=== PATIENT | female | born 1990 | race Caucasian/White ===

== ENCOUNTER 2021-12-17 00:22 | Day surgery (SDC) | payer OTHER, SELFPAY ==
[2021-12-11 17:44] VITALS: BMI 31.9
--- NOTE | 2021-12-11 18:12 | PC.NURSE ---
Report to the Outpatient Waiting Room, entrance under the green pavilion located off [facility], at 0630 on 12-17-21. OR Time: 0830. - You and your visitor will be asked a series of questions to screen for COVID 19 for your protection. - Only one visitor is allowed at this time. - The patient visitor is requested to leave or wait in car when not with patient. - A mask is required within the hospital. Patients may have clear liquids (water, carbonated beverages, clear teas, apple juice) until 3 hours prior to surgery with a maximum of 20 ounces. 0530 - No food from midnight until time of surgery - Infants may have breast milk until 4 hours before surgery, infant formula 6 hours prior to surgery. - Children will be allowed to drink immediately following surgery. If applicable, please bring a bottle or sippy cup to assist with drinking. Juice, water, soda, and popsicles are readily available. For infants on formula, please bring formula the day of surgery. Pacifiers are allowed. Take the following medications with a SIP of water the morning of surgery: None Medications to discontinue per physician: Vitamins and supplements Date to take last dose: 12-14-21 Please no make-up, nail citizen of [place], hairspray, perfume, deodorant, or body powder the day of surgery. No jewelry (including any body piercings) or valuables the day of surgery, leave them at home. Please take a shower or bath the night before, or the morning of, surgery with an antibacterial soap. Wear comfortable, loose fitting clothing. Children are encouraged to wear pajamas. - Jewelry must be removed prior to entering the operating room. Rings and piercings that are not removed may be cut off. - The hospital will not accept responsibility for valuables. - Please leave all valuables, including medications, at home the day of surgery. If you are going home after surgery, a licensed clamp truck driver must drive you home. - NO public transportation without another adult. - We recommend that an adult stay with you for 24 hours following discharge. - We also recommend that you do not drive, make important decision, drink alcoholic beverages, or take any drugs that were not prescribed by your health care provider for at least 24 hours after your discharge time. For Pediatric surgeries, we recommend two adults accompany the child home (only one inside the building at this time). Follow any additional instructions given to you from your surgeon. If you or anyone in your household have experienced Covid symptoms in the past week, please notify your surgeon or the nurse liaison at the phone number below for possible testing. Telephone instructions given to Rupa Rivera and asked if any additional questions and then verbalized understanding. Patient advised to call surgeon office or pre surgery nurse liaison [phone] if any additional questions.
--- NOTE | 2021-12-16 13:49 | WPDANESEPPF ---
Anes - Initial Pre Proc Eval Procedure: Operation Date: 12/17/21 08:30 Proposed Procedures p Bilateral Breast Augmentation - Marcelo Siegel MD Date/Time: 12/16/21 13:49 Surgeon: Marcelo Siegel MD Pre Op Diagnosis: micromastia Patient Data Age: 31 Gender: F Height: 1.68 m Weight: 89.81 kg Allergies Allergy/AdvReac Type Severity Reaction Status Date / Time poison tristan extract Allergy Intermediate Rash Verified 12/11/21 17:42 Home Medications Medication Instructions Recorded Confirmed Type docusate sodium 100 mg capsule 100 mg PO DAILY #14 caps 12/03/21 12/11/21 Rx (Colace) ondansetron 4 mg disintegrating 4 mg PO Q8H #21 tabs 12/03/21 12/11/21 Rx tablet carisoprodol 350 mg tablet (Soma) 350 mg PO TID PRN muscle pain #21 12/04/21 12/11/21 Rx tabs oxycodone-acetaminophen 5 mg-325 1 tablet PO Q6H PRN pain #30 tabs 12/04/21 12/11/21 Rx mg tablet (Percocet) Patient hx anesthesia problems: none Family hx anesthesia problems: none Results Review: All pre-operative results and documents have been reviewed as part of the pre-operative evaluation. [facility] Past Medical History Medical History (Updated 12/16/21 @ 13:50 by Vince Candelaria MD) Obesity Surgical History Surgical History (Updated 10/30/21 @ 09:23 by Lakisha Euceda) History of Social History Social History (Updated 10/30/21 @ 09:23 by Lakisha Euceda) Smoking status: Never smoker Second hand tobacco smoke exposure: Yes (sometimes when with mother) Alcohol intake: current Alcohol use details: occasionally/socially Substance use: never Substance use type: does not use Living arrangements: with family Spiritual care concerns: No Anes - Eval Final PreProcedure Day of Procedure 12/16/21 13:49 Patient weight: obese Heart: regular rate and rhythm Lungs: clear to auscultation and normal air movement Airway: Mallampati scale class II Neurological: alert and oriented Last oral intake: >/= 8 hours ASA classification: II Emergent: no Anesthetic plan: proceed Anesthesia type and monitoring: general LMA Results Review: All pre-operative results and documents have been reviewed as part of the pre-operative evaluation. Informed Consent: The patient's anesthetic plan and its attendant risks and benefits were discussed with the patient/family/POA. Questions were solicited and answers provided to the satisfaction of the patient/family/POA.
[2021-12-17] VITALS (9 sets, daily range): BP systolic 116–160; BP diastolic 58–97; PULSE 59–87; RESP 10–20; TEMP 36.4–36.8; O2SAT 97–100
--- NOTE | 2021-12-17 07:07 | WPDHPUPDATE1 ---
History and Physical Update Update Date/Time: 12/17/21 07:07 History and Physical has been reviewed, including an updated exam of the patient. There are NO changes in the patient's condition. Risks, benefits, and alternatives have been discussed and questions answered. Patient agrees to proceed with procedure.
[2021-12-17] MEDS: LACTATED RINGERS 1,000 ML 30 ML IV CONT ×2 (07:10→10:20)
--- NOTE | 2021-12-17 07:10 | W.PM.PROC2 ---
Procedure Note - Detailed Date of Procedure 12/17/21 Pre-op Diagnosis micromastia Post-op Diagnosis Same Procedure Performed Bilateral augmentation mammaplasty Surgeon Marcelo Siegel MD Anesthesia General Findings Bilateral Elizabeth Crews SoftTouch 440 cc Right - REF# [id number] SN [id number] Left - REF# [id number] SN [id number] Description of Procedure She is here today for bilateral breast augmentation. Previously and again today the risks, benefits, alternatives were discussed in extensive detail. I wanted her to be very realistic about the risks involved as well as expectations. We discussed aftercare and what to monitor for. Made sure answered all of her questions to her satisfaction today and consent was obtained. Marked in the preoperative holding area with their verification. The patient was taken to the operating room placed supine on the operating table. Anesthesia was provided by anesthesiology. A surgical time-out was taken. We cleansed the skin and 1% lidocaine and 0.25% Marcaine with epinephrine was used anesthetize as a field block. She was prepped and draped in a standard sterile fashion. Tegaderm nipple Dumont were placed. A 15 blade used to make an incision along the inframammary fold. Dissection was continued at 45 degree angle until the chest wall as identified. 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 I incised the pectoralis major along its inferior border and completely released the inferior border leaving the medial border intact. I created a subpectoral pocket in the appropriate dimensions based on our preoperative planning for the implant. I then copiously irrigated with saline solution and verified a strict hemostasis. Next the use a triple antibiotic and Betadine containing solution to irrigate the pocket. I washed my gloves with the triple antibiotic and Betadine solution. We washed the implant immediately upon opening it with this solution and only opened it when we needed it. I used implant funnel and no-touch technique. The implant was introduced into the pocket using the funnel. Having verified positioning of the implant this was closed using 2-0 Vicryl followed by 3-0 Monocryl in a running subcuticular 4-0 Monocryl followed by tissue glue. Fluffs and surgical bra were placed. Patient was awoke and taken to PACU without difficulty. All instrument sponge counts were correct at the end of the case. Estimated Blood Loss 20 Drains No Packing No Pathology None sent Complications No immediate complications Condition Stable Disposition PACU
[2021-12-17] MEDS: NACL 0.9% IRRIG POUR BOTTLE 900 ML, GENTAMICIN SULFATE INJ 160 MG, ceFAZolin 2 GM, POVI... IRRIGATION (08:31)
[2021-12-17] MEDS: TRANEXAMIC ACID 1,000MG/ISO100 1,000 MG/100 ML BAG 200 MG IVPB (08:31)
[2021-12-17] MEDS: BUPIVACAINE HCL 0.25% PF 30 ML VIAL INFILTRATE (08:31)
[2021-12-17] MEDS: LIDO 1%/EPINEPHRINE/PF 1:200,000 30 ML VIAL XX (08:31)
[2021-12-17] MEDS: ceFAZolin 2 GM/D5W 50 ML 2 GM/50 ML BAG IVPB (08:31)
[2021-12-17] MEDS: fentaNYL CITRATE INJ (*CRX) 100 MCG/2 ML VIAL 25 MCG IV PUSH ×7 (10:02→10:42)
[2021-12-17] MEDS: oxyCODONE HCL (*CRX) 5 MG TAB IR PO (11:18)
[2021-12-17] MEDS: ONDANSETRON INJ 4 MG/2 ML VIAL IV PUSH (11:20)
== END 2021-12-17 12:09 | disposition home or self-care (01) ==
PROVIDERS: Visit Provider Surgery Plastic and Reconstructive Surgery
PROC: (CPT 19325; principal; 2021-12-17 08:30)
DX: Z41.1 Encounter for cosmetic surgery (principal); N64.82 Hypoplasia of breast; E66.9 Obesity, unspecified; Z68.32 Body mass index [BMI] 32.0-32.9, adult
CPT/HCPCS: 19325; A9270; J0690; J1100; J1170; J1580; J2250; J2405; J2704; J3010; J7120

== ENCOUNTER 2022-01-01 15:17 | Emergency (ER) | payer OTHER, SELFPAY ==
[2022-01-01 15:28] VITALS: BP 105/61; PULSE 65; RESP 18; TEMP 36.7; O2SAT 100
--- NOTE | 2022-01-01 16:08 | ED.EAR ---
HPI - Ear Problem General Chief complaint: Ear Stated complaint: Right Ear Pain Time Seen by Provider: 01/01/22 16:09 Source: patient and RN notes reviewed Mode of arrival: ambulatory Limitations: no limitations History of Present Illness HPI Narrative: 31 year old female presents with concern for right your pain. She reports symptoms started several days ago after she cleaned out her ears with a Q-tip. She denies nasal congestion, rhinorrhea, sore throat, decreased hearing, fever body aches chills or sweats. She denies drainage from the ear MD Complaint: ear pain Related Data Allergies Allergy/AdvReac Type Severity Reaction Status Date / Time poison tristan extract Allergy Intermediate Rash Verified 01/01/22 15:59 Review of Systems Review of Systems: CONSTITUTIONAL: Denies malaise, chills, sweats, or fever. EYES: Denies visual changes, redness, or discharge. ENT: Denies rhinorrhea, congestion, sinus pain, and sore throat. Reports ear pain CARDIOVASCULAR: Denies chest pain, palpitations, or edema. RESPIRATORY: Denies cough. Denies dyspnea. GASTROINTESTINAL: Denies abdominal pain, nausea, vomiting, diarrhea SKIN: Denies rash or itching. MUSCULOSKELETAL: Denies myalgia. NEUROLOGIC: Denies headache. All systems reviewed & are unremarkable except as noted in HPI and below PMFSH Past Medical History Medical History (Updated 01/01/22 @ 16:12 by Darcy Gerardo NP) Obesity Surgical History Surgical History (Updated 10/30/21 @ 09:23 by Lakisha Euceda) History of Social History Social History (Updated 10/30/21 @ 09:23 by Lakisha Euceda) Smoking status: Never smoker Second hand tobacco smoke exposure: Yes (sometimes when with mother) Alcohol intake: current Alcohol use details: occasionally/socially Substance use: never Substance use type: does not use Spiritual care concerns: No Comments At time of signature, agree with nursing past medical, surgical, social and family history. There is no relevant family history pertinent to the presenting complaint Exam Narrative: GENERAL: Well-appearing, well-nourished, and in no acute distress. HEAD: Normocephalic EYES: PERRLA, conjunctivae clear ENT: Nares clear.. Mucous membranes moist. TM pearly raza with dull light reflex bilaterally; right tragal tenderness with EAC erythema, edema, small amount of drainage. Oropharynx not erythematous without lesions. Tonsils not enlarged and without exudate, no drooling, no hoarseness, no trismus, uvula midline. NECK: Supple. No lymphadenopathy CHEST: No respiratory distress, speaks in full sentences. HEART: Regular rate and rhythm. No murmur heard. SKIN: Warm, dry, no rash. NEURO: Alert and oriented x3. PSYCH: Normal mood and affect Course Course Emergency Course: Patient is aware of diagnosis, understands and agrees to treatment plan. Anticipatory guidance given. Patient agrees to follow-up as directed and is aware of reasons to seek care at the emergency department. Portions of this record may have been created with voice recognition software Level of Care: Express Care Visit Vital Signs Vital signs: Vital Signs Temperature 98.1 F 01/01/22 15:28 Pulse Rate 65 01/01/22 15:28 Respiratory Rate 18 01/01/22 15:28 Blood Pressure 105/61 01/01/22 15:28 Pulse Oximetry 100 01/01/22 15:28 Oxygen Delivery Room Air 01/01/22 15:28 Temperature 98.1 F 01/01/22 15:28 Pulse Rate 65 01/01/22 15:28 Respiratory Rate 18 01/01/22 15:28 Blood Pressure 105/61 01/01/22 15:28 Pulse Oximetry 100 01/01/22 15:28 Oxygen Delivery Room Air 01/01/22 15:28 Reviewed. Medical Decision Making MDM Narrative Medical decision making narrative: Differential diagnosis considered: Manzanares virus, strep pharyngitis, allergic rhinitis, upper respiratory tract infection, sinusitis, rhinosinusitis, nasopharyngitis. viral pharyngitis, otitis media, otitis externa, otitis effusion, cerumen im
== END 2022-01-01 16:15 | disposition home or self-care (01) ==
PROVIDERS: Emergency Provider Nurse Practitioner
DX: H60.501 Unspecified acute noninfective otitis externa, right ear (principal); E66.9 Obesity, unspecified; Z68.32 Body mass index [BMI] 32.0-32.9, adult
CPT/HCPCS: 99213; G0463

== ENCOUNTER 2022-06-04 17:35 | Emergency (ER) | payer OTHER, SELFPAY ==
[2022-06-04 17:49] VITALS: BP 119/60; PULSE 56; RESP 18; TEMP 36.8; O2SAT 100
--- NOTE | 2022-06-04 20:10 | ED.GENADULT ---
HPI - General Adult General Chief complaint: Anxiety Stated complaint: Anxiety Time Seen by Provider: 06/04/22 20:10 Source: patient, RN notes reviewed and old records reviewed Mode of arrival: ambulatory Limitations: no limitations History of Present Illness HPI narrative: 32 year old female who presents to [facility] care with complaints of PANIC ATTACK YESTERDAY AT WORK, with HEART RACING,HEADACHE, NAUSEA WAS NOT ABLE GO TO WORK TODAY. Patient reports that today she still feels like her heart is racing at times and feels overwhelmed. Patient reports increased stress lately presently attending [employer]. Patient reports history of anxiety in the past. MD complaint: anxiety Onset (ago): day(s) (day 2 of symptoms) Related Data Allergies Allergy/AdvReac Type Severity Reaction Status Date / Time poison tristan extract Allergy Intermediate Rash Verified 06/04/22 20:03 Review of Systems Review of Systems: CONSTITUTIONAL: Denies fever, chills, or sweats. EYES: Denies visual changes, redness, or discharge. ENT: Denies rhinorrhea, congestion, sore throat, or otalgia. CARDIOVASCULAR: Denies chest pain, palpitations, or edema.feels intermittent heart racing RESPIRATORY: Denies cough or dyspnea. GASTROINTESTINAL: Denies abdominal pain,some nausea, no vomiting, or diarrhea. GENITOURINARY: Denies dysuria or hematuria. SKIN: Denies rash or itching. MUSCULOSKELETAL: Denies back pain, joint pain, or myalgia. NEUROLOGIC: reports some headache,no numbness, or weakness. PSYCHIATRIC: Reports some history of anxiety or depression. All systems reviewed & are unremarkable except as noted in HPI and below PMFSH Past Medical History Medical History Anxiety Obesity Surgical History Surgical History H/O breast augmentation History of Social History Social History Smoking status: Never smoker Second hand tobacco smoke exposure: Yes (sometimes when with mother) Alcohol intake: current Alcohol use details: occasionally/socially Substance use: never Substance use type: does not use Spiritual care concerns: No Comments At time of signature, agree with nursing past medical, surgical, social and family history. There is no relevant family history pertinent to the presenting complaint Exam Narrative: GENERAL: Well-appearing, well-nourished, and in no acute distress. HEAD: Normocephalic, atraumatic. EYES: PERRLA and EOMI. ENT: Nares clear, no rhinorrhea or epistaxis. Mucous membranes moist.TM's normal, throat pink with no lesions or exudates or swelling NECK: Supple. no lymphadenopathy CHEST: Clear to auscultation. No respiratory distress.SAO2 100% on room air HEART: Regular rate and rhythm. No murmur heard. Normal peripheral pulses. ABDOMEN: Soft, nontender, nondistended, normal active bowel sounds. EXTREMITIES: Normal range of motion. No edema. SKIN: Warm, dry, no rash. NEURO: No focal deficits. Alert and oriented x3.anxious Course Course Emergency Course: Patient is aware of diagnosis, understands and agrees to treatment plan.? Anticipatory guidance given.? Patient agrees to follow-up as directed and is aware of reasons to seek care at the emergency department. Portions of this record may have been created with voice recognition software Level of Care: Express Care Visit Vital Signs Vital signs: Vital Signs Temperature 36.8 C 06/04/22 17:49 Pulse Rate 56 L 06/04/22 17:49 Respiratory Rate 18 06/04/22 17:49 Blood Pressure 119/60 06/04/22 17:49 Pulse Oximetry 100 06/04/22 17:49 Oxygen Delivery Room Air 06/04/22 17:49 Temperature 36.8 C 06/04/22 17:49 Pulse Rate 56 L 06/04/22 17:49 Respiratory Rate 18 06/04/22 17:49 Blood Pressure 119/60 06/04/22 17:49 Pulse Oximetry 100 06/04/22 17:49 Oxygen Delivery Room Air
== END 2022-06-04 20:25 | disposition home or self-care (01) ==
PROVIDERS: Emergency Provider Registered Nurse
DX: F41.9 Anxiety disorder, unspecified (principal)
CPT/HCPCS: 99213; G0463

== ENCOUNTER 2024-07-11 09:49 | Emergency (ER) | payer SELFPAY ==
[2024-07-11 09:59] VITALS: BP 133/65; PULSE 84; RESP 18; TEMP 37.3; O2SAT 100
--- NOTE | 2024-07-11 10:21 | ED_ITS ---
HPI - URI/Sore Throat General Chief Complaint: Upper Respiratory Infection Stated Complaint: flu like symptoms Time Seen by Provider: 07/11/24 10:18 Source: RN notes reviewed and old records reviewed Mode of arrival: ambulatory Limitations: no limitations History of Present Illness HPI Narrative: 34-year-old female who presents to [facility] with complaints of fatigue,stuffy nose with congestion, headache and body aches with cough for the past 2 days and had to call off of work today so needs work note. Patient reports that she needs to be tested for flu and COVID. Patient reports that her daughter has also been ill for the past 2 days.Reports that she has taken some Ibuprofen for her symptoms, reports no known fever. MD elicited complaint: cough and other (fatigue body aches, headache, nasal congestion, cough) Onset (ago): day(s) (day2) Severity: moderate Able to tolerate fluids by mouth: Yes Treatments prior to arrival: ibuprofen Related Data Home Medications ?Medication ?Instructions ?Recorded ?Confirmed ?Last Taken ?Type fluoxetine 10 mg capsule mg 07/11/24 Unknown History Allergies Allergy/AdvReac Type Severity Reaction Status Date / Time poison tristan extract Allergy Intermediate Rash Verified 07/11/24 09:57 Review of Systems Review of Systems: CONSTITUTIONAL: Reports malaise, no chills, sweats, or fever. EYES: Denies visual changes, redness, or discharge. ENT: Reports rhinorrhea, congestion, sinus pain,no otalgia and no sore throat. CARDIOVASCULAR: Denies chest pain, palpitations, or edema. RESPIRATORY: Reports cough.? Denies dyspnea. GASTROINTESTINAL: Denies abdominal pain, nausea, vomiting, diarrhea SKIN: Denies rash or itching. MUSCULOSKELETAL: reports myalgia. NEUROLOGIC: Reports headache. All systems reviewed & are unremarkable except as noted in HPI and below PMFSH Past Medical History Medical History H/O migraine during Anxiety Obesity Surgical History Surgical History History of tubal ligation H/O breast augmentation History of Social History Social History Smoking status: Never smoker Second hand tobacco smoke exposure: Yes (sometimes when with mother) Alcohol intake: current Alcohol use details: occasionally/socially Substance use: never Substance use type: does not use Living arrangements: with family Spiritual care concerns: No Comments At time of signature, agree with nursing past medical, surgical, social and family history. There is no relevant family history pertinent to the presenting complaint Exam Narrative: GENERAL: Well-appearing, well-nourished,obesity and in no acute distress. HEAD: Normocephalic EYES: PERRLA, conjunctivae clear ENT: Nares clear, turbinates edematous and erythematous, clear discharge. Mucous membranes moist. TM pearly raza with dull light reflex bilaterally; no tragal tenderness. Oropharynx erythematous without lesions. Tonsils not enlarged and without exudate, no drooling, no hoarseness, no trismus, uvula midline.post nasal drainage present NECK: Supple. No lymphadenopathy CHEST: Clear to auscultation, breath sounds equal. No wheezing, rhonchi, rales, or stridor. No respiratory distress, speaks in full sentences.dry cough SAO2 100% on room air HEART: Regular rate and rhythm. No murmur heard. SKIN: Warm, dry, no rash. NEURO: Alert and oriented x3. PSYCH: Normal mood and affect Course Course Emergency Course: Patient is aware of diagnosis, understands and agrees to treatment plan.? Anticipatory guidance given.? Patient agrees to follow-up as directed and is aware of reasons to seek care at the emergency department. Portions of this record may have been created with voice recognition software Level of Care: Express Care Visit Vital Signs Vital signs: Vital Signs Temperature 37.3 C 07/11/24 09:59 Pulse Rate 84 07/11/24 09:59 Respiratory Rate 18 07/11/24 09:59 Blood Pressure 133/65 07/11/24 09:59 Pulse Oximetry 100 07/11/24 09:59 Oxygen Delivery Room Air 07/11/24 09:59 Temperature 37.3 C 07/11/24 09:59 Pulse Rate 84 07/11/24 09:59 Respiratory Rate 18 07/11/24 09:59 Blood Pressure 133/65 07/11/24 09:59 Pulse Oximetry 100 07/11/24 09:59 Oxygen Delivery Room Air 07/11/24 09:59 Reviewed MDM - URI/Sore Throat MDM Narrative Medical decision making narrative: Differential diagnosis considered: Manz[place] virus, strep pharyngitis, allergic rhinitis, upper respiratory tract infection, sinusitis, rhinosinusitis, nasopharyngitis. viral pharyngitis, otitis media, otitis externa, pneumonia, bronchitis, viral cough syndrome, viral syndrome, and influenza.? Exam findings show no acute concerns or changes; patient is non-toxic appearing and is in no distress.? Patient is appropriate for outpatient treatment and follow-up. Differential Diagnosis Differential diagnosis: Likely upper respiratory infection, viral infection, influenza and other (COVID) Medical Records Attestation: I reviewed the patient's medical records. Lab Data Attestation: I reviewed the patient's lab results. Lab results narrative: COVID antigen positive, Influenza A negative, Influenza B negative Labs: Lab Results 07/11/24 Range/Units 10:24 POC Influenza A Ag Negative (Negative) POC Influenza B Ag Negative (Negative) POC SARS CoV-2 Ag Positive (Negative) Critical Care Time Critical Care Time Critical Care Time: No Discharge Plan Discharge Clinical Impression: COVID-19 Patient Disposition: Home, Self-Care Condition: Stable Instructions: How to Recover from COVID-19 at Home (ED) Additional Instructions: Increase fluids especially juices and water [id number] cough and cold medicine of your choice for your symptoms Zyrtec Claritin or Abby daily Tylenol or ibuprofen for any fever pain heat to the face 20-30 minutes 4-6 times a day for pain Salt water gargles, throat lozenges or throat sprays as desired Delsym or Robitussin cough syrup Must quarantine If your symptoms persist, change or worsen significantly before you can contact your personal physician then please, without delay, go to the emergency department for further evaluation. Follow-up with PCP in 7-10 days or sooner if needed Follow up with PCP soon in regards to your blood pressure which is elevated above threshold for referral. Blood pressure above 120/80 may indicate pre- hypertension. 133/65 COVID-19 DISCHARGE The following recommendations have been made by the CDC and local Health Departments, regarding COVID-19: Those individuals with mild cases of COVID-19 can generally be discontinued from isolation, 5 days AFTER the onset of symptoms AND the resolution of fever for 24hrs (without the use of fever-reducing medications) Those individuals who were asymptomatic, and tested positive, are discontinued from isolation 10 days AFTER their first positive COVID-19 test Those individuals with SEVERE to CRITICAL illness or immunocompromised diseases may require up to 20 days of home isolation or hospitalization Majority of mild to moderate cases can be treated at home, without hospitalization or prescription medications You do not need a negative test result to return to work/school, assuming the above recommendations have been met and you are not symptomatic. At this time, return to work/school notes will not be provided. Guidelines from the local Health Department, CDC, and workplace are expected to be followed. All individuals in the household need to remained quarantined for up to 14 days if asymptomatic OR 10 days after the start of symptoms. Everyone in the home DOES NOT require testing, they are presumed positive and should quarantine as directed. Treating symptoms for mild to moderate cases may include: Tylenol, Flonase/nasal spray, OTC cold/flu medications recommended from your provider or any necessary prescription medications provided at your visit or from your PCP IF YOU TESTED NEGATIVE If you are symptomatic with reason to believe you have COVID-19, there is a high possibility your rapid test may not have detected the virus. Rapid testing is dependent on timing and viral load and may have a false- negative reading You should follow appropriate guidelines regarding quarantine, hand washing, mask wearing, and social distancing You may be sent for PCR testing as an outpatient to the [facility] testing site Common Adult Symptoms: Fever/chills Cough Shortness of breath Fatigue, muscle aches Headache Loss of taste/smell Sore throat, congestion, runny nose GI symptoms (nausea, vomiting, diarrhea) Common Pediatric Symptoms Cough Fever GI symptoms (diarrhea, upset stomach, nausea, vomiting) Symptoms may differ in severity however, most cases do not require hospitalization. WHEN TO SEEK ER EVALUATION/TREATMENT Severe/persistent shortness of breath or difficulty breathing Elevated, persistent fevers without resolution with fever-reducing medications Chest pain Extreme fatigue/lethargy Complications of pre-existing disease Patient Language: Kinyarwanda Prescriptions: No Action fluoxetine 10 mg capsule Follow-up/Referrals: Milad,Duke Maddox MD [Primary Care Provider] - Stand Alone Forms: Work/School Release IP Time of Disposition: 10:44 Quality Lupis Coma Scale Eyes: Open Verbal: Oriented and Alert Motor: Follows Commands [place] Coma Total Score: 15
[2024-07-11 10:26] LABS: EDCOVIDSCREEN Positive (Negative); EDINFLUASCREEN Negative (Negative); EDINFLUBSCREEN Negative (Negative)
== END 2024-07-11 10:48 | disposition home or self-care (01) ==
PROVIDERS: Emergency Provider Registered Nurse; PCP Internal Medicine Geriatric Medicine
DX: U07.1 COVID-19 (principal); Z20.822 Contact with and (suspected) exposure to COVID-19; E66.9 Obesity, unspecified; Z68.32 Body mass index [BMI] 32.0-32.9, adult
CPT/HCPCS: 87426; 87804; 99212; G0463

== ENCOUNTER 2024-12-16 10:27 | Emergency (ER) | payer SELFPAY ==
--- NOTE | 2024-12-16 10:30 | ED_ITS ---
HPI - Arrhythmia/Palpitations General Chief Complaint: Weakness Stated Complaint: fatigue,rapid heart rate Time Seen by Provider: 12/16/24 10:29 Source: patient Mode of arrival: ambulatory Limitations: no limitations History of Present Illness HPI narrative: Rupa is a 34-year-old female patient presenting to the clinic today with complaints of fatigue, headache, nasal congestion, and feels like she has an elevated heart rate. She reports headache and nasal congestion has been going on for the past 4 days. This morning she felt fatigue,increase in heart rate, and shaky. States she was at work when this occurred. Nurse at work took her blood pressure and told her her blood pressure was elevated. She also ate something and stated that this improved her symptoms. Denies any nausea or vomiting. No aura. Does say that there was some sensitivity to light with headache. History of migraine headaches during in the past. Took a Excedrin migraine at work at 0930 and ate something and this has improved her symptoms. Work sent her to the clinic so she could be evaluated. History of anxiety. LMP was 12/03/24. Has not been sexually active since her last menses. Related Data Home Medications ?Medication ?Instructions ?Recorded ?Confirmed ?Last Taken ?Type fluoxetine 40 mg capsule mg 12/16/24 Unknown History Allergies Allergy/AdvReac Type Severity Reaction Status Date / Time poison tristan extract Allergy Intermediate Rash Verified 12/16/24 10:39 Review of Systems Review of Systems: Pertinent positives per HPI. Patient denies any fever, chills, rash, visual changes, dizziness, cough, shortness of breath, chest pain, palpitations, nausea, vomiting, diarrhea, constipation, abdominal pain, or any urinary issues. [facility] Past Medical History Medical History H/O migraine during Anxiety Obesity Surgical History Surgical History History of tubal ligation H/O breast augmentation History of Social History Social History Smoking status: Never smoker Second hand tobacco smoke exposure: Yes (sometimes when with mother) Alcohol intake: current Alcohol use details: occasionally/socially Substance use: never Substance use type: does not use Living arrangements: with family Spiritual care concerns: No Comments At the time of my signature, I reviewed and agree with the nursing past medical, surgical, social, and family history. There is no relevant family history pertinent to the patient complaint. Exam Narrative: General: Well-developed, well nourished, in no apparent distress Head: Normocephalic, atraumatic Eyes: Pupils equally round and reactive to light bilaterally, EOM intact, sclera and conjunctive clear, no discharge, lids normal Ears: TMs intact and clear, ear canals clear, no drainage, grossly hearing normal. Nose: Nares patent, clear nasal discharge, no inflammation, no sinus tenderness. Mouth: Oropharynx without lesions or masses, good dentition, MMM. Tongue midline, even rise and fall of uvula Neck: Supple, trachea midline, no enlargement of anterior or posterior cervical nodes, no thyroid masses or goiter palpable. Cardio: Regular rate and rhythm, s1 and s2 normal, no murmur appreciated. Resp: Clear to auscultation bilaterally anteriorly and posteriorly, no rhonchi, rales, wheezing or rubs Musculoskeletal: No deformity, non-tender to palpation, grossly normal range of motion, muscle strength strong and equal, peripheral pulse strong, no edema, no cyanosis, normal gait and station Neuro: Alert and oriented x4 with normal speech, no focal deficits, cranial nerves I through XII intact, muscle strength 5 out of 5, sensation intact bilaterally. Extremities: No deformity, no edema, no cyanosis, capillary refill less than 2 seconds, peripheral pulses palpable and strong. Integumentary: [place], warm, and dry, intact without lesion, no rashes. Course Course Emergency Course: Portions of this record may have been created with voice recognition software. Level of Care: Express Care Visit Vital Signs Vital signs: Vital Signs Temperature 36.8 C 12/16/24 10:35 Pulse Rate 72 12/16/24 10:35 Respiratory Rate 16 12/16/24 10:35 Blood Pressure 137/74 12/16/24 10:35 Pulse Oximetry 100 12/16/24 10:35 Oxygen Delivery Room Air 12/16/24 10:35 Temperature 36.8 C 12/16/24 10:35 Pulse Rate 72 12/16/24 10:35 Respiratory Rate 16 12/16/24 10:35 Blood Pressure 137/74 12/16/24 10:35 Pulse Oximetry 100 12/16/24 10:35 Oxygen Delivery Room Air 12/16/24 10:35 Vital signs reviewed MDM - Arrhythmia/Palpitations MDM Narrative Medical decision making narrative: At the time of visit patient is resting comfortably on the exam table. Patient appears to be nontoxic. EKG: EKG shows sinus bradycardia with heart rate of 56 beats per minute. With a nonspecific T-wave abnormality. No ST elevation or depression noted. Labs: Blood sugar was 92. Orthostatic blood pressures: Lying blood pressure was 133/70 with heart rate of 58, sitting blood pressure was 127/74 with heart rate of 62, standing blood pressure was 134/70 with heart rate of 70 Plan: I suspect patient has feelings of palpitations and headache. Patient took Excedrin migraine ate something while at work and now she is feeling better . She only came in today because work ?made her ?. Patient is requesting work note to be able to return tomorrow. Supportive measures were discussed with the patient and they voiced understanding discharge instructions and agrees to treatment plan. Return precautions reviewed Differential Diagnosis Differential diagnosis: Likely palpitations, anxiety, sinus tachycardia, artial fibrillation, artial flutter, ventricular premature beats, supraventricular tachycardia, ventricular tachycardia and other (Viral syndrome, COVID, hypoglyc emia, hypovolemia, vertigo, migraine headache, tension headache, atypical chest pain, STEMI, non STEMI, anemia) Lab Data Labs: Lab Results 12/16/24 12/16/24 Range/Units 10:46 10:56 POC Capillary Glucose 92 (65-105) mg/dl POC SARS CoV-2 Ag Negative (Negative) ECG Data EKG #1: Attestation: I personally reviewed and interpreted this ECG as follows: ECG completion date: 12/16/24 ECG completion time: 10:50 Prior ECG tracings: not available for review Interpretation: EKG shows sinus bradycardia with heart rate of 56 beats per minute. With a nonspecific T-wave abnormality. No ST elevation or depression noted. MI interval is 163 milliseconds, QRS durations 94 milliseconds, QT-QTC is 423-460 milliseconds, P-R-T axis 14 31 10 Discharge Plan Discharge Clinical Impression: Intermittent palpitations Headache Qualifiers: Headache type: unspecified Headache chronicity pattern: acute headache Intractability: not intractable Qualified Code(s): R51.9 - Headache, unspecified Patient Disposition: Home Condition: Stable Instructions: Antibiotic Form, Heart Palpitations (ED), Acute Headache (ED) Additional Instructions: Blood sugar is 92 in the clinic today EKG shows no concern in the clinic today Orthostatic blood pressures were within normal limits Increase fluids and stay well hydrated Tylenol/motrin for pain/fever Flonase and OTC antihistamines as directed for nasal congestion Vicks vapor rub to open sinuses Sinus rinses for congestion Go to the ED if you develop a worsening in your condition- high fever not controlled by Tylenol or Motrin, confusion, weakness, lethargy, dehydration, worsening of palpitations, shortness of breath, or chest pain. Follow up with your PCP in 3-5 days if symptoms persist. Patient Language: [place] Islander Prescriptions: No Action fluoxetine 40 mg capsule Follow-up/Referrals: UNKNOWN,DOCTOR [Non-Staff] - Stand Alone Forms: Work/School Release IP Time of Disposition: 11:04 Quality NIHSS Nursing Documentation ED NIHSS nursing documentation: reviewed/agree
--- OUTSIDE RECORDS SUMMARY | 2024-12-16 10:31 | XMS_ITS | Referral Summary ---
Author Organization [facility] Address [address] [place] [address] Care Team Providers Care Clinical Staff Educator Name Role Phone Nigel Angela MD Primary Care Provider [phone] Allergies No known active allergies Medications cariprazine (Vraylar) 1.5 mg capsule Take 1 capsule by mouth daily 07/17/2022 Active cholecalciferol (VITAMIN D-3) 5,000 unit tablet Take 5,000 Units by mouth every morning 06/19/2022 Active FeroSuL 325 mg (65 mg iron) tablet Take 1 tablet by mouth every morning 06/19/2022 Active hydrOXYzine (ATARAX) 25 mg tablet Take 1 tablet by mouth daily Take daily at bedtime. 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 Monthly or less 07/31/2022 Q2: How many drinks containi ng alcohol do you have on a typical day when you are drinking? 1 or 2 07/31/2022 Q3: How often do you have si x or more drinks on one occasion? Less than monthly 07/31/2022 PHQ-2 Answer Date Recorded PHQ-2 Total Score (If total score is 3 or more points, staff should administer the PHQ-9) 4 07/31/2022 Comments No Sex and Gender Information Value Date Recorded Sex Assigned at Not on file Legal Sex Female 10:59 AM CDT Gender Identity Female 03/13/2021 9:08 AM CDT Sexual Orientation Straight 03/13/2021 9: 08 AM CDT Last Filed Vital Signs Vital Sign Reading Time Taken Comments Blood Pressure 100/62 07/31/2022 1:53 PM GAS BOOSTER ENGINEER Pulse 59 07/31/2022 1:53 PM GAS BOOSTER ENGINEER Temperature 36.7 C (98 F) 07/31/2022 1:53 PM GAS BOOSTER ENGINEER Respiratory Rate 20 07/31/2022 1:53 PM GAS BOOSTER ENGINEER Oxygen Saturation 99% 07/31/2022 1:53 PM GAS BOOSTER ENGINEER Inhaled Oxygen Concentration - - Weight 93 kg (205 lb) 07/31/2022 1:53 PM GAS BOOSTER ENGINEER Height 167.6 cm (5' 6) 07/31/2022 1:53 PM GAS BOOSTER ENGINEER Body Mass Index 33.09 07/31/2022 1:53 PM GAS BOOSTER ENGINEER Plan of Treatment Not on file Advance Directives For more information, please contact: [phone] * Full Code (Latest Code Status on File) Date Activated Date Inactivated Comments 04/02/2021 9:42 AM 04/04/2021 2:55 PM * Full Code Date Activated Date Inactivated Comments 04/02/2021 5:34 AM 04/02/2021 9:42 AM Full CPR in case of cardiopulmonary arrest * Full Code Date Activated Date Inactivated Comments 08/10/2019 9:56 AM 08/12/2019 3:40 PM * Full Code Date Activated Date Inactivated Comments 08/10/2019 5:26 AM 08/10/2019 9:56 AM Full CPR in case of cardiopulmonary arrest Care Teams Clinical Staff Educator Relationship Specialty Start Date End [place] [address] PCP - General Family Medicine 07/31/22
--- OUTSIDE RECORDS SUMMARY | 2024-12-16 10:31 | XMS_ITS | Clinical Summary ---
Author Organization [facility] Address [address] [place] [address] Phone Care Team Providers Care Network Security Officer Name Role Phone Provider, None Primary Care Provider Unavailabl e Allergies No known active allergies Medications naproxen (NAPROSYN) 500 MG Tablet Take 1 Tablet by mouth 2 times daily as needed for Moderate or more severe pain. 20 Tablet 06/10/2024 Active Social History Tobacco Use Types Packs/Day Years Used Date Smoking Tobacco: Never Smokeless Tobacco: Never Tobacco Cessation:Counseling Given: Not Answered Alcohol Use Standard Drinks/Week Comments Yes 0 (1 standard drink = 0.6 oz pur e alcohol) socially Comments No Sex and Gender Information Value Date Recorded Sex Assigned at Not on file Legal Sex Female 10:44 PM CDT Gender Identity Not on file Sexual Orientation Not on file Last Filed Vital Signs Vital Sign Reading Time Taken Comments Blood Pressure 115/60 06/10/2024 11:20 AM POLITICAL SCIENTIST Pulse 67 06/10/2024 11:20 AM POLITICAL SCIENTIST Temperature 36.2 C (97.2 F) 06/10/2024 10:44 AM POLITICAL SCIENTIST Respiratory Rate 18 06/10/2024 11:20 AM POLITICAL SCIENTIST Oxygen Saturation 100% 06/10/2024 11:20 AM POLITICAL SCIENTIST Inhaled Oxygen Concentration - - Weight 88.5 kg (195 lb 1.7 oz) 06/10/2024 10:44 AM POLITICAL SCIENTIST Height 167.6 cm (5' 6) 06/10/2024 10:44 AM POLITICAL SCIENTIST Body Mass Index 31.49 06/10/2024 10:44 AM POLITICAL SCIENTIST Plan of Treatment Health Maintenance Due Date Last Done Comments Hepatitis C Virus (HCV) Screening 1992 TdaP Immunization 1992 Hepatitis B Immunization (1 of 3 - 19+ 3-dose series) 2011 Pap Smear 2013 Cervical Cancer Screening (CCS) 2022 HPV/Cotest 2022 SARS-COV-2 Immunization () 03/13/2024 Influenza Immunization ([place] on Ended) 2025 04/06/2012 Respiratory Syncytial Virus (RSV) Immunization (Adult) (1 - 1-dose 75+ series) 2067 Human Papillomavirus (HPV) Immunization Aged Out No longer eligible b ased on patient's age to complete this topic Meningococcal Immunization (ACWY) Aged Out No longer eligible based on patient's age to complete this topic Pneumococcal Immunization Combined Aged Out No longer eligible based on patient's age to complete this topic Rotavirus Immunization Aged Out No lo nger eligible based on patient's age to complete this topic Care Teams Network Security Officer Relationship Specialty Start Date End Date Provider, None [place] PCP - General 06/22/22
--- OUTSIDE RECORDS SUMMARY | 2024-12-16 10:31 | XMS_ITS | CONTINUITY OF CARE DOCUMENT ---
Author Name janes bhanuraman Address Unknown Organization [facility] Address [address] [place] [address] [address] [place] [address] Phone [phone] Care Team Providers Care Manager Intensive Care Unit Name Role Phone Alfredito Ray MD Unavailable JOCELYNE PATTEN MD Unavailable [phone] JOCELYNE PATTEN MD Unavailable PROBLEMS Condition Status Date Provider Notes SOB active Claire Dobson Cardiology examination active Claire Dobson INSURANCE PROVIDERS Payer name Policy type / Coverage type [place] [employer] party ID [facility] [employer] Other [id number] TREATMENT PLAN Date Name Complete Echo
--- OUTSIDE RECORDS SUMMARY | 2024-12-16 10:31 | XMS_ITS | Clinical Summary ---
Author Organization [facility] Address [address] [place] [address] Care Team Providers Care Configuration Release Manager Name Role Phone Unavailable Primary Care Provider Unavailabl e Source Comments [facility],non-owned Affiliates and Associated Physician Practices is amultiple site organization consisting of ambulatory clinics and hospital sitesin [place], [place], [place] and [place]. This disclosure is being madepursuant to the Care Everywhere program and may not contain all information available regarding this patient. Last updated 18.[facility] Active Problems Patient Care Coordination No te Formatting of this note migh t be different from the original. Nopp/mfcc 03/2019 Problem Noted Date Diagnosed Date Daughter with unilateral cleft lip s/p repair screening for malformation using ultra sonics Encounter for screening for risk of pre-term lab or Evaluate anatomy not seen on prior sonogram Ultrasound scan to evaluate placenta location Social History Tobacco Use Types Packs/Day Years Used Date Smoking Tobacco: Never Assessed Comments No Sex and Gender Information Value Date Recorded Sex Assigned at Not on file Legal Sex Female 8:10 AM CDT Gender Identity Not on file Sexual Orientation Not on file Plan of Treatment Health Maintenance Due Date Last Done Comments HIV SCREENING 2007 HEPATITIS C SCREENING 03/17/2010 DTAP/TDAP/TD VACCINES (1 - Tdap) 2011 HEPATITIS B VACCINE (1 of 3 - 19+ 3-dose series) 2011 COVID-19 VACCINE (1 - 2023-2 5 season) 2024 DEPRESSION SCREENING 07/13/2024 INFLUENZA VACCINE (Season Ended) 2025 ZOSTER VACCINE (1 of 2) 2042 HIB VACCINE Aged Out No longer eligi ble based on patient's age to complete this topic HPV VACCINE Aged Out No longer eligi ble based on patient's age to complete this topic MENINGOCOCCAL (Group B) VACC INE SHARED DECISION-MAKING Aged Out No longer eligibl e based on patient's age to complete this topic MENINGOCOCCAL GROUPS A/C/Y/W VACCINE Aged Out No longer eligible b ased on patient's age to complete this topic PNEUMOCOCCAL VACCINE Aged Out No long er eligible based on patient's age to complete this topic Insurance [facility]
--- OUTSIDE RECORDS SUMMARY | 2024-12-16 10:31 | XMS_ITS | Clinical Summary ---
Author Organization [facility] Address [address] [place] [address] Care Team Providers Care Oil Filters Inspector Name Role Phone Nigel Angela MD Primary Care Provider [phone] Allergies No known active allergies Medications cariprazine [...] 08/12/2019 Tdap 08/12/2019(Deferred: No longer n eeded) Surgical History Surgery Date Site/Laterality Comments SECTION BREAST SURGERY Bilateral Augmentation Medical History Medical History Date Comments Migraine Anxiety and depression 07/31/2022 Absolute anemia 07/31/2022 Family History Medical History Relation Name Comments defects Daughter Hypertension Father Cancer Maternal Grandfather Diabetes Maternal Grandfather Hearing loss Maternal Grandfather Heart disease Maternal Grandfather Cancer Maternal Grandmother Diabetes Maternal Grandmother Heart disease Maternal Grandmother Stroke Maternal Grandmother No Known Problems Mother Bipolar disorder Other Uncle No Known Problems Sister Relation Name Status Comments Daughter Father Alive Maternal Grandfather Maternal Grandmother Mother Alive Other Uncle Sister Alive Social History Tobacco Use Types Packs/Day Years [...] Orientation Straight 03/13/2021 9: 08 AM CDT Obstetrics History Para Term AB IAB SAB Ectopic Multiple Livin g Live Births 3 3 3 0 3 3 Date Outcome GA Total Labor Labor/2nd/3rd Weight Sex Type Anes PTL Nancy A1 A5 Name Clin 012 Term 39w 0d F CS-LT ranv Livin g Complications:None 020 Term 39w 1d 0h 05m 0h 05m 3.082 kg (6 lb 12.7 oz) F CS-LT ranv Spinal N Livin g 9 9 INA TT,Nabil Duncan MD Complications:None Delivery Location:[facility] ([facility] PROCEDURE) 021 Term 39w 2d 0h 04m 0h 04m 3.164 kg (6 lb 15.6 oz) F CS-LT ranv Spinal N Livin g 9 9 INA TT,Nabil Duncan MD Complications:None Delivery Location:[facility] ([facility]ED[facility]) Last Filed Vital Signs Vital Sign Reading Time Taken Comments Blood Pressure 100/62 07/31/2022 1:53 PM MEDICATION AIDE Pulse 59 07/31/2022 1:53 PM MEDICATION AIDE Temperature 36.7 C (98 F) 07/31/2022 1:53 PM MEDICATION AIDE Respiratory Rate 20 07/31/2022 1:53 PM MEDICATION AIDE Oxygen Saturation 99% 07/31/2022 1:53 PM MEDICATION AIDE Inhaled Oxygen Concentration - - Weight 93 kg (205 lb) 07/31/2022 1:53 PM MEDICATION AIDE Height 167.6 cm (5' 6) 07/31/2022 1:53 PM MEDICATION AIDE Body Mass Index 33.09 07/31/2022 1:53 PM MEDICATION AIDE Plan of Treatment Health Maintenance Due Date Last Done Comments Cervical Cancer Screening 1992 Hepatitis C Screening 1992 DTaP/Tdap/Td Vaccine (1 - Tdap) 2003 Varicella Vaccines (1 of 2 - 13+ 2-dose series) 2005 Hepatitis B Screening 2010 Regular Well Visit/Exam 18-64 2010 Depression Screening 07/31/2023 07/31/2022, 07/31/2022 Influenza Vaccine (Season Ended) 2025 04/06/2012 HPV Vaccines Aged Out No longer eligi ble based on patient's age to complete this topic Pneumococcal vaccine <65 Aged Out No longer eligible based on patient's age to complete this topic Advance Directives For more information, please contact: [phone] * Full Code (Latest Code Status on [...] in case of cardiopulmonary arrest Care Teams Oil Filters Inspector Relationship Specialty Start Date End [place] [address] PCP - General Family Medicine 07/31/22
[2024-12-16 10:35] VITALS: BP 137/74; PULSE 72; RESP 16; TEMP 36.8; O2SAT 100
--- OUTSIDE RECORDS SUMMARY | 2024-12-16 10:35 | XMS_ITS | CONTINUITY OF CARE DOCUMENT ---
Author Name janes bhanuraman Address Unknown Organization [facility] Address [address] [place] [address] [address] [place] [address] Phone [phone] Care Team Providers Care Senior Policy Advisor Name Role Phone Alfredito Ray MD Unavailable JOCELYNE PATTEN MD Unavailable JOCELYNE PATTEN MD Unavailable [phone] PROBLEMS Condition Status Date Provider Notes SOB active Claire Dobson Cardiology examination active Claire Dobson INSURANCE PROVIDERS Payer name Policy type / Coverage type [employer] red democrat ID [facility] [employer] Other [id number] TREATMENT PLAN Date Name Complete Echo
--- NOTE | 2024-12-16 10:45 | ECG_ITS ---
Test Date: 2024-12-16 10:50:32 Measurements Intervals [place] Rate: 56 P: 14 NH: 163 QRS: 31 QRSD: 94 T: 10 QT: 423 QTc: 412 Interpretive Statements SINUS BRADYCARDIA MINIMAL Q WAVES- HIGH LATERAL LEADS BORDERLINE T WAVE ABNORMALITY- ANT/INF LEADS BASELINE ARTIFACT- I, II, III, AVR, AVF, V1 BORDERLINE ECG No previous ECG available for comparison Electronically Signed On 12-16-2024 12:22:30 CDT by Jorge Luis Braxton D.O.
[2024-12-16 10:49] LABS: Glucose Point of Care 92 mg/dl (65-105)
[2024-12-16 10:57] LABS: EDCOVIDSCREEN Negative (Negative)
[2024-12-16 10:58] VITALS: BP 133/70; PULSE 58
[2024-12-16 10:59] VITALS: BP 127/74; PULSE 62
[2024-12-16 11:01] VITALS: BP 134/70; PULSE 70
== END 2024-12-16 11:11 | disposition home or self-care (01) ==
PROVIDERS: Emergency Provider Nurse Practitioner Family
DX: R00.2 Palpitations (principal); R51.9 Headache, unspecified; Z20.822 Contact with and (suspected) exposure to COVID-19; E66.9 Obesity, unspecified
CPT/HCPCS: 82948; 87426; 93005; 99213; G0463